=== PATIENT | female | born 1985 | race Two or more races ===

== ENCOUNTER 2018-11-13 17:14 | Emergency (ER) | payer OTHER ==
[~2018-11-13] VITALS: Ht 165.1 cm; Wt 139.0 kg
[2018-11-13] MEDS ORDERED: NAPR220T66 PO (17:32)
[2018-11-13] MEDS ORDERED: ACET-2178 PO (17:32)
[2018-11-13] MEDS ORDERED: KETOROLAC 60MG/2ML VIAL IM ONE (20:00)
[2018-11-13] MEDS ORDERED: CYCLOBENZAPRINE 10MG TABLET PO ONE (21:15)
[2018-11-13 22:01] VITALS: BP 129/90
== END 2018-11-13 22:02 | disposition home or self-care (01) ==
LOC: ER 18:10
DX: M54.5 Low back pain (principal); M25.562 Pain in left knee; F17.200 Nicotine dependence, unspecified, uncomplicated; Z98.890 Other specified postprocedural states
CPT/HCPCS: 72100; 73562; 81025; 96372; 99283; J1885

== ENCOUNTER 2019-01-27 13:58 | Emergency (ER) | payer OTHER ==
[~2019-01-27] VITALS: Ht 162.6 cm; Wt 110.0 kg
[~2019-01-27 13:58] MED LIST: ACET-2178 PO; NAPR220T66 PO
[2019-01-27] MEDS ORDERED: GABAPENTIN 300MG CAPSULE PO ONE (14:45)
[2019-01-27 15:04] LABS: EOSINOPHILS % 3.2 % (0.0-5.0); HEMATOCRIT. 39.7 % (36.0-48.0); HEMOGLOBIN. 12.9 g/dL (12.0-16.0); MEAN CORPUSCULAR HEMOGLOBIN 26.4 pg (28.0-32.0); MEAN CORPUSCULAR VOLUME 81.3 fL (81.0-99.0); MEAN PLATELET VOLUME 7.7 fl (7.4-10.4); MONOCYTES % 10.4 % (2.0-8.0); NEUTROPHILS % 32.4 % (40.0-76.0); PLATELET 340 x1000/uL (130-400); RED BLOOD CELL COUNT 4.89 mill/uL (4.2-5.4); RED CELL DISTRIBUTION WIDTH 13.6 % (11.6-14.6)
[2019-01-27 15:07] LABS: CHLORIDE 108 mEq/L (98-107)
[2019-01-27 16:01] LABS: CLARITY URINE CLEAR (CLEAR); COLOR URINE YELLOW (YELLOW); KETONES URINE NEGATIVE (NEGATIVE); LEUKOCYTE ESTERASE URINE NEGATIVE (NEGATIVE); NITRITE URINE NEGATIVE (NEGATIVE); OCCULT BLOOD URINE NEGATIVE (NEGATIVE); PROTEIN URINE NEGATIVE (NEGATIVE); SPECIFIC GRAVITY URINE 1.031 (1.005-1.030); UROBILINOGEN URINE 0.2 E.U./dL (0.2-1.0)
[2019-01-27 16:30] VITALS: BP 110/71
== END 2019-01-27 16:34 | disposition home or self-care (01) ==
LOC: ER 13:58
DX: R20.2 Paresthesia of skin (principal)
CPT/HCPCS: 36415; 81025; 82962; 99283

== ENCOUNTER 2020-08-16 23:11 | Emergency (ER) | payer OTHER ==
[~2020-08-16] VITALS: Ht 160 cm; Wt 146.0 kg
[~2020-08-16 23:11] MED LIST changes: -ACET-2178 PO; +TOPUD PO
[2020-08-17 00:37] LABS: BASOPHILS % 0.8 % (0.0-2.0); EOSINOPHILS % 1.3 % (0.0-5.0); HEMATOCRIT. 36.7 % (36.0-48.0); LYMPHOCYTES % 32.6 % (20.0-50.0); MEAN CORPUSCULAR HEMOGLOBIN 25.5 pg (28.0-32.0); MEAN CORPUSCULAR VOLUME 78.1 fL (81.0-99.0); MEAN PLATELET VOLUME 7.7 fl (7.4-10.4); MONOCYTES % 7.6 % (2.0-8.0); NEUTROPHILS % 57.7 % (40.0-76.0); PLATELET 357 x1000/uL (130-400); RED CELL DISTRIBUTION WIDTH 14.4 % (11.6-14.6)
[2020-08-17 00:40] LABS: CHLORIDE 109 mEq/L (98-107)
[2020-08-17 00:42] LABS: HCG SCREEN NEGATIVE
[2020-08-17] MEDS ORDERED: ONDANSETRON 4MG ODT PO ONE (01:00)
[2020-08-17 01:01] LABS: CLARITY URINE CLEAR (CLEAR); COLOR URINE YELLOW (YELLOW); KETONES URINE NEGATIVE (NEGATIVE); LEUKOCYTE ESTERASE URINE NEGATIVE (NEGATIVE); NITRITE URINE NEGATIVE (NEGATIVE); OCCULT BLOOD URINE TRACE (NEGATIVE); PROTEIN URINE NEGATIVE (NEGATIVE); SPECIFIC GRAVITY URINE 1.028 (1.005-1.030); UROBILINOGEN URINE 0.2 E.U./dL (0.2-1.0)
[2020-08-17] MEDS ORDERED: MAGNESIUM/ALUMINUM HYDROXIDE/SIMETHICONE 30ML UDC PO STA (01:24)
[2020-08-17] MEDS ORDERED: VISCOUS LIDOCAINE 2% 15 ML UDC PO STA (01:24)
[2020-08-17] MEDS ORDERED: OMEP10CA5 MT (03:43)
[2020-08-17 08:00] VITALS: BP 173/88
== END 2020-08-17 04:15 | disposition home or self-care (01) ==
LOC: ER 23:11
DX: R10.13 Epigastric pain (principal); R11.2 Nausea with vomiting, unspecified; R82.998 Other abnormal findings in urine
CPT/HCPCS: 36415; 80053; 81003; 81025; 83690; 84443; 84703; 85025; 93005; 99284; Q0162